=== PATIENT | male | born 1965 | race Caucasian/White ===

== ENCOUNTER → 2019-11-03 | Outpatient (CLI) | payer OTHER ==
--- NOTE | 2019-11-03 15:19 | Diagnostic Imaging Report ---
EXAMINATION: KNEE RIGHT THREE VIEWS INDICATION: Knee pain, knee swelling COMPARISON: None FINDINGS: No acute fracture or dislocation. Alignment appears anatomic. No substantial degenerative change. Trace suprapatellar joint effusion. IMPRESSION: Trace suprapatellar joint effusion. No acute osseous injury. Signed by: Maria Victoria Medel MD on 11/03/2019 3:16 PM
--- NOTE | 2019-11-03 15:21 | Diagnostic Imaging Report ---
EXAMINATION: CHEST 2 VIEWS, ABDOMEN-1VIEW (KUB) INDICATION: Shortness of breath, abdominal pain COMPARISON: None FINDINGS: LINES/TUBES:None LUNGS:The lungs are well-inflated. No focal consolidation or pulmonary edema. PLEURA:No pleural effusion or pneumothorax. MEDIASTINUM:The cardiomediastinal silhouette appears normal in size and shape. BONES/SOFT TISSUES:No acute osseous injury. ABDOMEN:No free air under the diaphragm. Nonobstructive bowel gas pattern. IMPRESSION: No focal pneumonia or pulmonary edema. Nonobstructive bowel gas pattern. No free air. Signed by: Maria Victoria Medel MD on 11/03/2019 3:19 PM
== END ==
LOC: RAD 14:31
PROVIDERS: ATTEND Family Medicine
DX: R22.9 Localized swelling, mass and lump, unspecified (principal)
CPT/HCPCS: 71046; 74018